=== PATIENT | female | born 1970 | race Caucasian/White ===

== ENCOUNTER 2020-12-24 15:40 | Emergency (ER) | payer OTHER ==
[2020-12-24 15:45] VITALS: BP 148/83; PULSE 100; TEMP 98.5; BMI 29.9
[2020-12-24] MEDS ORDERED: KETOROLAC TROMETHAMINE 30 MG/1 ML VIAL ONE (17:31)
[2020-12-24] MEDS ORDERED: KETOROLAC TROMETHAMINE 30 MG/1 ML VIAL IM ONE (17:31)
[2020-12-24 18:08] LABS: BASO % 0.5 % (0-2.0); EOS % 1.3 % (0-4.5); HEMATOCRIT 32.7 % (32.4-45.2); HEMOGLOBIN 10.4 GM/dL (10.7-15.3); LYMPH % 22.2 % (8-40); MCH 20.6 pg (25.7-33.7); MCHC 31.7 g/dl (32.0-36.0); MEAN CELL VOLUME 64.9 fl (80-96); MEAN PLT VOLUME 8.5 fl (7.5-11.1); MONO % 4.5 % (3.8-10.2); NEUT % 71.5 % (42.8-82.8); PLATELET COUNT 362 K/MM3 (134-434); RBC 5.04 M/mm3 (3.60-5.2); RDW 21.4 % (11.6-15.6); WHITE BLOOD COUNT 8.9 K/mm3 (4.0-10.0)
[2020-12-24 18:23] LABS: EPI CELLS >36 /uL (0-25.1); HYALINE CASTS 4 /uL (0-3.1); URINE APPEARANCE CLOUDY; URINE BACTERIA 120 /uL (0-1359); URINE BILIRUBIN NEGATIVE (NEGATIVE); URINE COLOR YELLOW; URINE GLUCOSE (UA) NEGATIVE (NEGATIVE); URINE KETONE TRACE (NEGATIVE); URINE LEUK ESTERASE TRACE (NEGATIVE); URINE NITRITE NEGATIVE (NEGATIVE); URINE PROTEIN NEGATIVE (NEGATIVE); URINE RBC 61 /uL (0-23.9); URINE UROBILINOGEN 0.2 mg/dL (0.2-1.0); URINE WBC 11 /uL (0-25.8)
[2020-12-24 18:25] LABS: CHLORIDE 102 mmol/L (98-107); SODIUM 135 mmol/L (136-145)
[2020-12-24 18:27] LABS: ALBUMIN 3.6 g/dl (3.4-5.0); ANION GAP 6 MMOL/L (8-16); CALCIUM 9.9 mg/dL (8.5-10.1); CO2 27 mmol/L (21-32); GLUCOSE,RANDOM 128 mg/dL (74-106)
[2020-12-24 18:30] LABS: SGPT/ALT 18 U/L (13-61)
[2020-12-24 18:31] LABS: CREATININE 0.6 mg/dL (0.55-1.3)
[2020-12-24 18:32] LABS: BILIRUBIN,TOTAL 0.3 mg/dL (0.2-1); TOT PROT 8.2 g/dl (6.4-8.2)
[2020-12-24 18:33] LABS: ALK PHOS 100 U/L (45-117)
[2020-12-24 18:39] LABS: ANISOCYTOSIS 3+; MACROCYTOSIS 0; PLATELET ESTIMATE NORMAL; SGOT/AST 13 U/L (15-37); TARGET CELLS 1+; TEAR DROP CELLS 1+
[2020-12-24] MEDS ORDERED: ACETAMINOPHEN 325 MG TABLET (FP) PO ONE (19:54)
[2020-12-24] MEDS ORDERED: ACETAMINOPHEN 325 MG TABLET (FP) ONE (20:07)
== END 2020-12-24 20:36 | disposition home or self-care (01) ==
LOC: JER 15:40
PROC: 3E0233Z Introduction of Anti-inflammatory into Muscle, Percutaneous Approach (ICD-10-PCS; principal; 2020-12-24)
DX: N93.9 Abnormal uterine and vaginal bleeding, unspecified (principal); D25.9 Leiomyoma of uterus, unspecified; N83.209 Unspecified ovarian cyst, unspecified side
CPT/HCPCS: 36415; 76830-TC; 80053; 81003; 84702; 85025; 86850; 86900; 86901; 87077; 87086; 99285-25

== ENCOUNTER 2021-03-20 13:37 | Emergency (ER) | payer OTHER ==
[2021-03-20 14:47] VITALS: BP 127/78; PULSE 80; TEMP 98.7; BMI 38.2
== END 2021-03-20 16:46 | disposition home or self-care (01) ==
LOC: JER 13:37
DX: Z48.00 Encounter for change or removal of nonsurgical wound dressing (principal)
CPT/HCPCS: 99282-25

== ENCOUNTER 2022-01-14 05:41 | Emergency (ER) | payer OTHER ==
[2022-01-14 06:01] VITALS: BP 133/86; PULSE 99; TEMP 98.8; BMI 42.1
[2022-01-14] MEDS ORDERED: ONDANSETRON 4 MG/2 ML VIAL IVPUSH ONE (06:29)
[2022-01-14] MEDS ORDERED: SODIUM CHLORIDE 1,000 ML IV STA (06:29)
[2022-01-14] MEDS ORDERED: ACETAMINOPHEN 500 MG TABLET (FP) PO ONE (06:29)
[2022-01-14] MEDS ORDERED: ONDANSETRON 4 MG/2 ML VIAL ONE (06:35)
[2022-01-14] MEDS ORDERED: ACETAMINOPHEN 325 MG TABLET (FP) ONE (06:35)
[2022-01-14 07:10] LABS: VENOUS BASE EXCESS 1.4 mmol/L (-2-2); VENOUS O2 SATURATION 82.1 % (70-80); VENOUS PH 7.386 (7.310-7.410)
[2022-01-14 07:21] LABS: BASO % 0.4 % (0-2.0); EOS % 1.9 % (0-4.5); HEMATOCRIT 40.9 % (32.4-45.2); HEMOGLOBIN 13.7 GM/dL (10.7-15.3); MCH 25.8 pg (25.7-33.7); MCHC 33.5 g/dl (32.0-36.0); MEAN PLT VOLUME 8.2 fl (7.5-11.1); MONO % 5.3 % (3.8-10.2); NEUT % 67.4 % (42.8-82.8); PLATELET COUNT 274 10^3/uL (134-434); RDW 14.5 % (11.6-15.6)
[2022-01-14 07:39] LABS: CHLORIDE 98 mmol/L (98-107); SODIUM 134 mmol/L (136-145)
[2022-01-14 07:41] LABS: CALCIUM 9.4 mg/dL (8.5-10.1)
[2022-01-14 07:42] LABS: ALBUMIN 3.7 g/dl (3.4-5.0); ANION GAP 8 MMOL/L (8-16); CO2 28 mmol/L (21-32)
[2022-01-14 07:44] LABS: SGPT/ALT 37 U/L (13-61)
[2022-01-14 07:45] LABS: CREATININE 0.7 mg/dL (0.55-1.3); SGOT/AST 25 U/L (15-37)
[2022-01-14 07:46] LABS: BILIRUBIN,TOTAL 0.4 mg/dL (0.2-1); TOT PROT 7.8 g/dl (6.4-8.2)
[2022-01-14 07:47] LABS: ALK PHOS 109 U/L (45-117)
[2022-01-14 07:55] LABS: GLUCOSE,RANDOM 433 mg/dL (74-106)
[2022-01-14 09:19] LABS: URINE APPEARANCE CLEAR; URINE BILIRUBIN NEGATIVE (NEGATIVE); URINE COLOR YELLOW; URINE GLUCOSE (UA) 3+ (NEGATIVE); URINE KETONE NEGATIVE (NEGATIVE)
[2022-01-14 09:20] LABS: PH,URINE 5.5 (5.0-8.0); URINE LEUK ESTERASE NEGATIVE (NEGATIVE); URINE NITRITE NEGATIVE (NEGATIVE); URINE PROTEIN NEGATIVE (NEGATIVE); URINE UROBILINOGEN 0.2 mg/dL (0.2-1.0)
[2022-01-14] MEDS ORDERED: FAMOTIDINE 20 MG/50 ML IVPB 20 MG/50 ML MG IVPB ONE ×2 (10:32→10:51)
[2022-01-14] MEDS ORDERED: morphine CARPU-JECT 2 MG/1 ML DISP.SYRIN IVPUSH ONE (11:27)
[2022-01-14 11:28] LABS: URINE RBC 1.1 /uL (0-23.9); URINE WBC 18.3 /uL (0-25.8)
[2022-01-14 11:29] LABS: EPI CELLS 16.2 /uL (0-25.1); HYALINE CASTS 0.76 /uL (0-3.1); URINE BACTERIA 422.2 /uL (0-1359)
== END 2022-01-14 11:20 | disposition home or self-care (01) ==
LOC: JER 05:41
PROC: 3E033GC Introduction of Other Therapeutic Substance into Peripheral Vein, Percutaneous Approach (ICD-10-PCS; principal; 2022-01-14)
PROC: 3E033NZ Introduction of Analgesics, Hypnotics, Sedatives into Peripheral Vein, Percutaneous Approach (ICD-10-PCS; 2022-01-14)
PROC: 3E033GC Introduction of Other Therapeutic Substance into Peripheral Vein, Percutaneous Approach (ICD-10-PCS; 2022-01-14)
PROC: 3E0337Z Introduction of Electrolytic and Water Balance Substance into Peripheral Vein, Percutaneous Approach (ICD-10-PCS; 2022-01-14)
DX: R73.9 Hyperglycemia, unspecified (principal)
CPT/HCPCS: 36415; 70450-TC; 71045-TC-FY; 74177-TC; 80053; 81003; 82010; 82803; 82962; 85025; 87086; 93005; 93010; 99285-25; Q9967

== ENCOUNTER 2022-06-09 13:16 | Emergency (ER) | payer OTHER ==
[2022-06-09 13:21] VITALS: BP 160/84; PULSE 86; RESP 18; TEMP 98.3; BMI 40.0
[2022-06-09] MEDS ORDERED: ACETAMINOPHEN 1000 MG/100 ML BAG IVPB ONE (14:12)
[2022-06-09] MEDS ORDERED: ONDANSETRON 4 MG/2 ML VIAL IVPUSH ONE (14:12)
[2022-06-09] MEDS ORDERED: SODIUM CHLORIDE 1,000 ML IV STA (14:12)
[2022-06-09] MEDS ORDERED: ONDANSETRON 4 MG/2 ML VIAL ONE (14:32)
[2022-06-09] MEDS ORDERED: ACETAMINOPHEN INJECTION 100 ML IVPB ONE (14:32)
[2022-06-09 15:21] LABS: BASO % 0.3 % (0-2.0); EOS % 0.8 % (0-4.5); HEMOGLOBIN 12.5 GM/dL (10.7-15.3); LYMPH % 18.2 % (8-40); MCH 25.6 pg (25.7-33.7); MCHC 32.8 g/dl (32.0-36.0); MEAN CELL VOLUME 78.1 fl (80-96); MEAN PLT VOLUME 7.8 fl (7.5-11.1); MONO % 3.8 % (3.8-10.2); NEUT % 76.9 % (42.8-82.8); PLATELET COUNT 304 10^3/uL (134-434); RBC 4.86 M/mm3 (3.60-5.2); RDW 14.7 % (11.6-15.6); WHITE BLOOD COUNT 8.4 K/mm3 (4.0-10.0)
[2022-06-09 15:24] LABS: EPI CELLS >36 /uL (0-25.1); HYALINE CASTS 1 /uL (0-3.1); PH,URINE 5.5 (5.0-8.0); URINE APPEARANCE CLEAR; URINE BACTERIA 311 /uL (0-1359); URINE BILIRUBIN NEGATIVE (NEGATIVE); URINE COLOR YELLOW; URINE GLUCOSE (UA) NEGATIVE (NEGATIVE); URINE KETONE NEGATIVE (NEGATIVE); URINE LEUK ESTERASE 1+ (NEGATIVE); URINE NITRITE NEGATIVE (NEGATIVE); URINE PROTEIN NEGATIVE (NEGATIVE); URINE RBC 2 /uL (0-23.9); URINE UROBILINOGEN 0.2 mg/dL (0.2-1.0); URINE WBC 5 /uL (0-25.8)
[2022-06-09 15:53] LABS: CALCIUM 9.7 mg/dL (8.5-10.1)
[2022-06-09 15:54] LABS: ALBUMIN 3.8 g/dl (3.4-5.0); BLOOD UREA NITROGEN 11.5 mg/dL (7-18)
[2022-06-09 15:57] LABS: CREATININE 0.5 mg/dL (0.55-1.3)
[2022-06-09 15:58] LABS: BILIRUBIN,TOTAL 0.3 mg/dL (0.2-1); INR 0.96 (0.83-1.09); TOT PROT 8.1 g/dl (6.4-8.2)
[2022-06-09 16:01] LABS: ACTIVATED PTT 33.6 SECONDS (25.2-36.5)
[2022-06-09] MEDS ORDERED: morphine CARPU-JECT 2 MG/1 ML DISP.SYRIN IVPUSH ONE (17:14)
== END 2022-06-09 19:02 | disposition home or self-care (01) ==
LOC: JER 13:16
PROC: 3E0333Z Introduction of Anti-inflammatory into Peripheral Vein, Percutaneous Approach (ICD-10-PCS; principal; 2022-06-09)
PROC: 3E033NZ Introduction of Analgesics, Hypnotics, Sedatives into Peripheral Vein, Percutaneous Approach (ICD-10-PCS; 2022-06-09)
PROC: 3E033GC Introduction of Other Therapeutic Substance into Peripheral Vein, Percutaneous Approach (ICD-10-PCS; 2022-06-09)
PROC: 3E0337Z Introduction of Electrolytic and Water Balance Substance into Peripheral Vein, Percutaneous Approach (ICD-10-PCS; 2022-06-09)
DX: K57.30 Diverticulosis of large intestine without perforation or abscess without bleeding (principal)
CPT/HCPCS: 36415; 74177-TC; 80053; 81003; 82272; 83690; 85025; 85610; 85730; 86850; 86900; 86901; 87077; 87086; 99285-25; Q9967

== ENCOUNTER 2023-06-01 16:36 | Emergency (ER) | payer OTHER ==
[2023-06-01 16:47] VITALS: PULSE 82; BMI 54.8
[2023-06-01] MEDS ORDERED: SODIUM CHLORIDE 0.9% 1000 ML INFUS.BAG IV ONE (17:50)
[2023-06-01] MEDS ORDERED: ACETAMINOPHEN 1000 MG/100 ML BAG IVPB ONE (17:50)
[2023-06-01] MEDS ORDERED: ACETAMINOPHEN INJECTION 100 ML IVPB ONE (18:15)
[2023-06-01 18:25] VITALS: BP 156/87; RESP 16; TEMP 98.7
[2023-06-01 18:46] LABS: BASO % 0.4 % (0-2.0); EOS % 1.3 % (0-4.5); HEMATOCRIT 38.1 % (32.4-45.2); HEMOGLOBIN 12.6 GM/dL (10.7-15.3); LYMPH % 20.4 % (8-40); MCH 25.8 pg (25.7-33.7); MCHC 33.1 g/dl (32.0-36.0); MEAN CELL VOLUME 78.1 fl (80-96); MONO % 4.7 % (3.8-10.2); NEUT % 73.2 % (42.8-82.8); PLATELET COUNT 303 10^3/uL (134-434); RBC 4.87 M/mm3 (3.60-5.2); WHITE BLOOD COUNT 7.2 K/mm3 (4.0-10.0)
[2023-06-01 18:47] LABS: PH,URINE 5.5 (5.0-8.0); URINE APPEARANCE CLEAR; URINE BILIRUBIN NEGATIVE (NEGATIVE); URINE COLOR YELLOW; URINE GLUCOSE (UA) NEGATIVE (NEGATIVE); URINE KETONE NEGATIVE (NEGATIVE); URINE LEUK ESTERASE NEGATIVE (NEGATIVE); URINE NITRITE NEGATIVE (NEGATIVE); URINE PROTEIN NEGATIVE (NEGATIVE); URINE UROBILINOGEN 0.2 mg/dL (0.2-1.0)
[2023-06-01 18:56] LABS: INR 1.06 (0.83-1.09); PROTHROMBIN TIME (PATIENT) 12.3 SEC (9.7-13.0)
[2023-06-01 18:59] LABS: ACTIVATED PTT 30.5 SECONDS (25.2-36.5)
[2023-06-01 19:11] LABS: POTASSIUM 4.4 mmol/L (3.5-5.1)
[2023-06-01 19:12] LABS: CALCIUM 9.5 mg/dL (8.5-10.1)
[2023-06-01 19:13] LABS: ALBUMIN 3.6 g/dl (3.4-5.0); BLOOD UREA NITROGEN 14.9 mg/dL (7-18)
[2023-06-01 19:16] LABS: CREATININE 0.8 mg/dL (0.55-1.3)
[2023-06-01 19:18] LABS: BILIRUBIN,TOTAL 0.3 mg/dL (0.2-1); TOT PROT 7.6 g/dl (6.4-8.2)
[2023-06-01] MEDS ORDERED: KETOROLAC TROMETHAMINE 15 MG/ML VIAL IVPUSH ONE (20:51)
[2023-06-01] MEDS ORDERED: KETOROLAC TROMETHAMINE 15 MG/ML VIAL ONE (21:00)
[2023-06-01] MEDS ORDERED: AMOX TR/POT CLAV 875MG/125MG TABLETS (FP) PO ONE (23:08)
[2023-06-01] MEDS ORDERED: AMOX TR/POT CLAV 875MG/125MG TABLETS (FP) ONE (23:16)
== END 2023-06-01 23:26 | disposition home or self-care (01) ==
LOC: JER 16:36
PROC: 3E033NZ Introduction of Analgesics, Hypnotics, Sedatives into Peripheral Vein, Percutaneous Approach (ICD-10-PCS; principal; 2023-06-01)
PROC: 3E0333Z Introduction of Anti-inflammatory into Peripheral Vein, Percutaneous Approach (ICD-10-PCS; 2023-06-01)
DX: M79.604 Pain in right leg (principal); M79.605 Pain in left leg; R22.41 Localized swelling, mass and lump, right lower limb; R10.32 Left lower quadrant pain; R10.2 Pelvic and perineal pain; K57.92 Diverticulitis of intestine, part unspecified, without perforation or abscess without bleeding; R07.89 Other chest pain; G89.29 Other chronic pain; E66.9 Obesity, unspecified; R30.0 Dysuria; R61 Generalized hyperhidrosis
CPT/HCPCS: 36415; 74177-TC; 80053; 81003; 85025; 85610; 85730; 87086; 93005; 93010; 93970-TC; 99285-25

== ENCOUNTER 2024-02-12 16:20 | Emergency (ER) | payer OTHER ==
[2024-02-12 16:33] VITALS: BP 168/85; PULSE 89; RESP 18; TEMP 98.5; BMI 39.3
[2024-02-12] MEDS ORDERED: ACETAMINOPHEN 500 MG TABLET (FP) ONE (17:30)
[2024-02-12] MEDS: ACETAMINOPHEN 500 MG TABLET (FP) PO ONE (17:38)
== END 2024-02-12 18:12 | disposition home or self-care (01) ==
LOC: JER 16:20
DX: M25.561 Pain in right knee (principal); M79.89 Other specified soft tissue disorders
CPT/HCPCS: 73564-TC-RT-FY; 82962; 99284-25

== ENCOUNTER 2024-07-17 20:51 | Inpatient (IN) | payer OTHER ==
[2024-07-17] MEDS ORDERED: morphine SULFATE 4 MG/ML VIAL ONE (21:58)
[2024-07-17] MEDS ORDERED: ACETAMINOPHEN INJECTION 100 ML ONE (21:59)
[2024-07-17] MEDS: morphine CARPU-JECT 4 MG/1 ML DISP.SYRIN IVPUSH ONE (22:09)
[2024-07-17] MEDS: ACETAMINOPHEN 1000 MG/100 ML BAG IVPB ONE (22:10)
[2024-07-17] MEDS: LACTATED RINGERS SOLUTION 1000 ML INFUS.BAG IV ONE (22:10)
[2024-07-17 23:02] LABS: BASO % 0.5 % (0-2.0); EOS % 0.1 % (0-4.5); HEMATOCRIT 33.1 % (32.4-45.2); HEMOGLOBIN 10.3 GM/dL (10.7-15.3); LYMPH % 6.9 % (8-40); MCH 24.6 pg (25.7-33.7); MCHC 31.1 g/dl (32.0-36.0); MEAN PLT VOLUME 7.6 fl (7.5-11.1); MONO % 5.4 % (3.8-10.2); NEUT % 87.1 % (42.8-82.8); PLATELET COUNT 301 10^3/uL (134-434); RBC 4.19 M/mm3 (3.60-5.2); RDW 13.9 % (11.6-15.6); VENOUS BASE EXCESS -3.1 mmol/L (-2-2); VENOUS O2 SATURATION 21.3 % (70-80); VENOUS PCO2 48.8 mmHg (38-52); VENOUS PH 7.3 (7.310-7.410); WHITE BLOOD COUNT 12.5 K/mm3 (4.0-10.0)
[2024-07-17 23:20] LABS: POTASSIUM 3.8 mmol/L (3.5-5.1)
[2024-07-17 23:22] LABS: CALCIUM 9.3 mg/dL (8.5-10.1)
[2024-07-17 23:23] LABS: ALBUMIN 3.6 g/dl (3.4-5.0); BLOOD UREA NITROGEN 20.2 mg/dL (7-18)
[2024-07-17 23:26] LABS: CREATININE 0.8 mg/dL (0.55-1.3)
[2024-07-17 23:27] LABS: BILIRUBIN,TOTAL 0.5 mg/dL (0.2-1)
[2024-07-18] MEDS: cefOXitin SODIUM 2 GM VIAL (RESTRICTED TO ID) IVPB ONE
[2024-07-18] MEDS: BUPIVACAINE HCL/PF 0.5% (5 MG/ML) 30 ML VIAL IJ ONE
[2024-07-18 00:16] LABS: HIV INTERPRETATION NEGATIVE (NEGATIVE)
[2024-07-18] MEDS ORDERED: morphine SULFATE 4 MG/ML VIAL ONE ×3 (00:40→10:57)
[2024-07-18] MEDS: morphine CARPU-JECT 4 MG/1 ML DISP.SYRIN IVPUSH ONE ×2 (00:43→11:00)
[2024-07-18] MEDS ORDERED: PIPERACILLIN/TAZOB 4.5 GM 4.5 GM/100 ML BAG IVPB ONE (02:00)
[2024-07-18] MEDS: PIPERACILLIN/TAZOB 4.5 GM 4.5 GM in DEXTROSE 5%-WATER 100 ML IVPB ONE (02:12)
[2024-07-18] MEDS: DEXTROSE 5%-0.45% SALINE 1,000 ML IV SCH ×2 (02:40→23:37)
[2024-07-18 04:01] LABS: INR 1.05 (0.83-1.09); PROTHROMBIN TIME (PATIENT) 12.1 SEC (9.7-13.0)
[2024-07-18] MEDS: ACETAMINOPHEN 1000 MG/100 ML BAG IVPB PRN ×2 (04:40→12:20)
[2024-07-18] MEDS: morphine SULFATE 4 MG/ML VIAL IVPUSH PRN ×2 (06:44→21:12)
[2024-07-18 08:56] LABS: EPI CELLS 36 /uL (0-25.1); HYALINE CASTS 0 /uL (0-3.1); PH,URINE 5.5 (5.0-8.0); URINE APPEARANCE CLEAR; URINE BACTERIA 1089 /uL (0-1359); URINE BILIRUBIN NEGATIVE (NEGATIVE); URINE COLOR YELLOW; URINE GLUCOSE (UA) NEGATIVE (NEGATIVE); URINE KETONE NEGATIVE (NEGATIVE); URINE LEUK ESTERASE NEGATIVE (NEGATIVE); URINE NITRITE NEGATIVE (NEGATIVE); URINE PROTEIN TRACE (NEGATIVE); URINE RBC 3 /uL (0-23.9); URINE UROBILINOGEN 0.2 mg/dL (0.2-1.0); URINE WBC 44 /uL (0-25.8)
[2024-07-18 08:58] LABS: HEMATOCRIT 33.8 % (32.4-45.2); HEMOGLOBIN 10.6 GM/dL (10.7-15.3); MCH 24.8 pg (25.7-33.7); MCHC 31.2 g/dl (32.0-36.0); MEAN CELL VOLUME 79.3 fl (80-96); PLATELET COUNT 301 10^3/uL (134-434); RBC 4.26 M/mm3 (3.60-5.2); RDW 14.3 % (11.6-15.6); WHITE BLOOD COUNT 13.9 K/mm3 (4.0-10.0)
[2024-07-18 09:11] LABS: POTASSIUM 3.5 mmol/L (3.5-5.1)
[2024-07-18 09:12] LABS: CALCIUM 9.3 mg/dL (8.5-10.1)
[2024-07-18 09:13] LABS: BLOOD UREA NITROGEN 16.4 mg/dL (7-18)
[2024-07-18 09:16] LABS: CREATININE 0.5 mg/dL (0.55-1.3)
[2024-07-18 09:59] LABS: ANISOCYTOSIS 0; MACROCYTOSIS 0
[2024-07-18] MEDS ORDERED: ENOXAPARIN NA (PORCINE) 40 MG/0.4 ML DISP.SYRIN SQ ONE (10:22)
[2024-07-18] MEDS ORDERED: PIPERACILLIN/TAZOB 3.375 GM 3.375 GM/50 ML BAG IVPB ONE (10:23)
[2024-07-18] MEDS: ENOXAPARIN NA (PORCINE) 40 MG/0.4 ML DISP.SYRIN SQ SCH (10:32)
[2024-07-18] MEDS: PIPERACILLIN/TAZOB 3.375 GM 3.375 GM in DEXTROSE 5%-WATER - 50 ML IVPB SCH (10:32)
[2024-07-18] MEDS ORDERED: PANTOPRAZOLE SODIUM 40 MG/100 ML BAG IVPB ONE (10:58)
[2024-07-18] MEDS: PANTOPRAZOLE SODIUM 40 MG in SODIUM CHLORIDE 100 ML IVPB SCH (11:00)
[2024-07-18] MEDS: PANTOPRAZOLE SODIUM 40 MG VIAL IVPB SCH (12:03)
[2024-07-18] MEDS: morphine SULFATE 4 MG/ML VIAL IVPUSH ONE (12:03)
[2024-07-18] MEDS ORDERED: ACETAMINOPHEN INJECTION 100 ML ONE (12:20)
[2024-07-18] MEDS ORDERED: BUPIVACAINE HCL/PF 0.25% (2.5MG/ML) 10 ML VIAL ONE (12:53)
[2024-07-18] MEDS ORDERED: MIDAZOLAM HCL 2 MG/2 ML SINGLE DOSE VIAL ONE ×2 (13:14→17:49)
[2024-07-18] MEDS ORDERED: KETOROLAC TROMETHAMINE 30 MG/1 ML VIAL ONE (13:16)
[2024-07-18] MEDS ORDERED: ceFAZolin SODIUM 1 GM VIAL ONE (13:16)
[2024-07-18] MEDS ORDERED: PROPOFOL 20 ML ONE (13:16)
[2024-07-18] MEDS ORDERED: DEXAMETHASONE SOD PHOSPHATE 4 MG/1 ML VIAL ONE (13:16)
[2024-07-18] MEDS ORDERED: ONDANSETRON 4 MG/2 ML VIAL ONE (13:16)
[2024-07-18] MEDS ORDERED: LIDOCAINE HCL 1%, 10 MG/ML (20ML VIAL) ONE (14:29)
[2024-07-18] MEDS ORDERED: BUPIVACAINE HCL/PF 0.5% (5MG/ML) 10 ML VIAL ONE (14:29)
[2024-07-18] MEDS: ceFAZolin SODIUM 1 GM VIAL IVPB ONE ×2 (15:05)
[2024-07-18] MEDS: BUPIVACAINE HCL/PF 0.25% (2.5MG/ML) 10 ML VIAL IJ ONE ×3 (15:16)
[2024-07-18] MEDS ORDERED: ROCURONIUM BROMIDE 50 MG/5 ML SYRINGE ONE (16:09)
[2024-07-18] MEDS ORDERED: SUGAMMADEX SODIUM 200 MG/2 ML VIAL ONE ×2 (17:29→17:38)
[2024-07-18] MEDS ORDERED: SUCCINYLCHOLINE CHLORIDE 200 MG/10 ML SYRINGE ONE (17:45)
[2024-07-18] MEDS: LACTATED RINGERS SOLUTION 1,000 ML IV SCH (17:55)
[2024-07-18] MEDS ORDERED: ONDANSETRON 4 MG/2 ML VIAL IVPUSH PRN ×2 (17:55→18:10)
[2024-07-18] MEDS ORDERED: PIPERACILLIN/TAZOB 3.375 GM 3.375 GM in DEXTROSE 5%-WATER - 50 ML IVPB SCH (18:00)
[2024-07-18] MEDS ORDERED: LACTATED RINGERS SOLUTION 1,000 ML IV SCH (18:00)
[2024-07-19 00:02] VITALS: BMI 40.5
[2024-07-19] MEDS: PIPERACILLIN/TAZOB 3.375 GM 3.375 GM in DEXTROSE 5%-WATER - 50 ML IVPB SCH (01:15)
[2024-07-19] MEDS: ACETAMINOPHEN 1000 MG/100 ML BAG IVPB PRN (02:13)
[2024-07-19] MEDS: PANTOPRAZOLE SODIUM 40 MG VIAL IVPB SCH (09:19)
[2024-07-19] MEDS: ENOXAPARIN NA (PORCINE) 40 MG/0.4 ML DISP.SYRIN SQ SCH (09:19)
[2024-07-19] MEDS ORDERED: PIPERACILLIN/TAZOB 3.375 GM 3.375 GM in DEXTROSE 5%-WATER - 50 ML IVPB SCH (10:00)
[2024-07-19 10:25] LABS: HEMATOCRIT 30.5 % (32.4-45.2); HEMOGLOBIN 9.8 GM/dL (10.7-15.3); MCHC 32.3 g/dl (32.0-36.0); MEAN CELL VOLUME 77.6 fl (80-96); MEAN PLT VOLUME 7.9 fl (7.5-11.1); PLATELET COUNT 303 10^3/uL (134-434); RBC 3.93 M/mm3 (3.60-5.2); RDW 14.4 % (11.6-15.6); WHITE BLOOD COUNT 12.8 K/mm3 (4.0-10.0)
[2024-07-19 11:28] LABS: POTASSIUM 3.3 mmol/L (3.5-5.1)
[2024-07-19 11:45] LABS: BLOOD UREA NITROGEN 14.5 mg/dL (7-18); CALCIUM 8.9 mg/dL (8.5-10.1)
[2024-07-19 11:47] LABS: BILIRUBIN,TOTAL 0.6 mg/dL (0.2-1)
[2024-07-19 11:48] LABS: CREATININE 0.4 mg/dL (0.55-1.3)
[2024-07-19 11:50] LABS: TOT PROT 6.4 g/dl (6.4-8.2)
[2024-07-19 12:11] LABS: ALBUMIN 2.7 g/dl (3.4-5.0)
[2024-07-19] MEDS: INSULIN ASPART SLIDING SCALE (NOVOLOG) 1 VIAL SQ SCH (12:52)
[2024-07-19] MEDS: LISINOPRIL 10 MG TABLET PO SCH (12:53)
[2024-07-19] MEDS ORDERED: GABAPENTIN 300 MG CAPSULE PO SCH (14:00)
[2024-07-20] MEDS: SIMETHICONE 80 MG TAB.CHEW (FP) PO PRN (00:35)
[2024-07-20 09:53] LABS: BASO % 0.4 % (0-2.0); EOS % 0.3 % (0-4.5); HEMATOCRIT 33.5 % (32.4-45.2); HEMOGLOBIN 10.5 GM/dL (10.7-15.3); LYMPH % 8.2 % (8-40); MCH 24.5 pg (25.7-33.7); MCHC 31.3 g/dl (32.0-36.0); MEAN CELL VOLUME 78.4 fl (80-96); MEAN PLT VOLUME 7.4 fl (7.5-11.1); NEUT % 89.1 % (42.8-82.8); PLATELET COUNT 375 10^3/uL (134-434); RBC 4.27 M/mm3 (3.60-5.2); RDW 14.5 % (11.6-15.6); WHITE BLOOD COUNT 12.1 K/mm3 (4.0-10.0)
[2024-07-20] MEDS ORDERED: ACETAMINOPHEN 1000 MG/100 ML BAG IVPB PRN (11:04)
[2024-07-20] MEDS: GABAPENTIN 300 MG CAPSULE PO SCH (12:08)
[2024-07-20 12:24] LABS: POTASSIUM 3.2 mmol/L (3.5-5.1)
[2024-07-20 12:28] LABS: CALCIUM 9.2 mg/dL (8.5-10.1)
[2024-07-20 12:29] LABS: ALBUMIN 2.6 g/dl (3.4-5.0); BLOOD UREA NITROGEN 11.8 mg/dL (7-18); MAGNESIUM 2.2 mg/dL (1.8-2.4)
[2024-07-20 12:32] LABS: CREATININE 0.4 mg/dL (0.55-1.3)
[2024-07-20 12:34] LABS: BILIRUBIN,TOTAL 0.7 mg/dL (0.2-1); TOT PROT 6.8 g/dl (6.4-8.2)
[2024-07-20] MEDS ORDERED: POTASSIUM CHLORIDE ORAL LIQUID 20 MEQ/15 ML PO ONE (12:47)
[2024-07-20] MEDS: ACETAMINOPHEN 1000 MG/100 ML BAG IVPB SCH (13:10)
[2024-07-20] MEDS: KETOROLAC TROMETHAMINE 15 MG/ML VIAL IVPUSH SCH (17:20)
[2024-07-20] MEDS: POTASSIUM CHLORIDE ORAL LIQUID 20 MEQ/15 ML PO ONE (17:56)
[2024-07-20] MEDS: POTASSIUM CHLORIDE ORAL LIQUID 20 MEQ/15 ML PO SCH (22:33)
[2024-07-21 09:21] LABS: BASO % 0.4 % (0-2.0); EOS % 2.4 % (0-4.5); HEMATOCRIT 30.4 % (32.4-45.2); HEMOGLOBIN 9.9 GM/dL (10.7-15.3); LYMPH % 12.3 % (8-40); MCH 25.2 pg (25.7-33.7); MCHC 32.4 g/dl (32.0-36.0); MEAN CELL VOLUME 77.8 fl (80-96); MEAN PLT VOLUME 7.2 fl (7.5-11.1); MONO % 4.9 % (3.8-10.2); PLATELET COUNT 373 10^3/uL (134-434); RBC 3.91 M/mm3 (3.60-5.2); RDW 14.9 % (11.6-15.6); WHITE BLOOD COUNT 8.4 K/mm3 (4.0-10.0)
[2024-07-21 09:37] LABS: POTASSIUM 3.5 mmol/L (3.5-5.1)
[2024-07-21 09:43] LABS: CALCIUM 8.9 mg/dL (8.5-10.1)
[2024-07-21 09:44] LABS: ALBUMIN 2.6 g/dl (3.4-5.0); BLOOD UREA NITROGEN 14.2 mg/dL (7-18); MAGNESIUM 2.2 mg/dL (1.8-2.4)
[2024-07-21 09:47] LABS: CREATININE 0.5 mg/dL (0.55-1.3)
[2024-07-21 09:48] LABS: BILIRUBIN,TOTAL 0.5 mg/dL (0.2-1)
[2024-07-21 09:49] LABS: TOT PROT 6.9 g/dl (6.4-8.2)
[2024-07-21] MEDS: amLODIPine BESYLATE 5 MG TABLET (FP) PO SCH (12:19)
[2024-07-21] MEDS: oxyCODONE HCL 5 MG TABLET PO PRN (12:42)
[2024-07-21] MEDS: ACETAMINOPHEN 325 MG TABLET (FP) PO PRN (18:12)
[2024-07-22 09:23] LABS: HEMATOCRIT 30.1 % (32.4-45.2); HEMOGLOBIN 9.6 GM/dL (10.7-15.3); MCH 25.2 pg (25.7-33.7); MCHC 31.8 g/dl (32.0-36.0); MEAN PLT VOLUME 7.4 fl (7.5-11.1); PLATELET COUNT 324 10^3/uL (134-434); RBC 3.81 M/mm3 (3.60-5.2); RDW 15.1 % (11.6-15.6); WHITE BLOOD COUNT 9.9 K/mm3 (4.0-10.0)
[2024-07-22 09:57] LABS: POTASSIUM 4.1 mmol/L (3.5-5.1)
[2024-07-22 10:02] LABS: ALBUMIN 2.5 g/dl (3.4-5.0); BLOOD UREA NITROGEN 11.7 mg/dL (7-18); CALCIUM 8.9 mg/dL (8.5-10.1); CREATININE 0.3 mg/dL (0.55-1.3)
[2024-07-22 10:05] LABS: BILIRUBIN,TOTAL 0.6 mg/dL (0.2-1); TOT PROT 6.7 g/dl (6.4-8.2)
[2024-07-22 10:32] LABS: ANISOCYTOSIS 0; HELMET CELLS 0; HOWELL-JOLLY BODIES 0; MACROCYTOSIS 0; OVALOCYTE 0; ROULEAU 0; SICKELED CELLS 0; TARGET CELLS 0; TEAR DROP CELLS 0; TOXIC GRANULATION 0
[2024-07-22] MEDS: oxyCODONE HCL 5 MG TABLET PO PRN (10:34)
[2024-07-22] MEDS: POLYETHYLENE GLYCOL (HEALTHYLAX) 3350 17 GM PACKET PO SCH (10:34)
[2024-07-22] MEDS: IBUPROFEN 600 MG TABLET (FP) PO SCH (11:22)
[2024-07-22] MEDS: DOCUSATE SODIUM 100 MG CAPSULE (FP) PO SCH (14:41)
[2024-07-22] MEDS: ACETAMINOPHEN 500 MG TABLET (FP) PO SCH (15:30)
[2024-07-22] MEDS: AMOX TR/POT CLAV 875MG/125MG TABLETS (FP) PO SCH (17:40)
[2024-07-24] MEDS: hydrOXYzine PAMOATE 25 MG CAPSULE (FP) PO ONE (16:51)
[2024-07-24] MEDS: ATORVASTATIN CA 20 MG TABLET (FP) PO SCH (16:52)
[2024-07-24] MEDS: BISACODYL 10 MG SUPP.RECT PR ONE (16:56)
[2024-07-24] MEDS: LISINOPRIL 10 MG TABLET PO SCH (16:56)
[2024-07-24] MEDS ORDERED: hydrOXYzine PAMOATE 25 MG CAPSULE (FP) PO PRN (19:55)
[2024-07-24] MEDS: SENNOSIDES 8.8 MG/5 ML SYRUP PO SCH (21:05)
[2024-07-24] MEDS ORDERED: ENOXAPARIN NA (PORCINE) 40 MG/0.4 ML DISP.SYRIN SQ SCH (22:00)
[2024-07-24] MEDS ORDERED: PATIENT'S OWN MEDICATION (NON-FORMULARY) (Gabapentin [Gabapentin] 600 MG Tablet) PO SCH (22:00)
[2024-07-25] MEDS: ENOXAPARIN NA (PORCINE) 40 MG/0.4 ML DISP.SYRIN SQ SCH (06:09)
[2024-07-25 09:01] LABS: HEMATOCRIT 31.1 % (32.4-45.2); HEMOGLOBIN 10.1 GM/dL (10.7-15.3); MCHC 32.3 g/dl (32.0-36.0); MEAN CELL VOLUME 77.3 fl (80-96); PLATELET COUNT 498 10^3/uL (134-434); RBC 4.02 M/mm3 (3.60-5.2); RDW 15.3 % (11.6-15.6)
[2024-07-25 09:13] LABS: POTASSIUM 4.7 mmol/L (3.5-5.1)
[2024-07-25 09:15] LABS: CALCIUM 9.7 mg/dL (8.5-10.1)
[2024-07-25 09:16] LABS: BLOOD UREA NITROGEN 15.1 mg/dL (7-18)
[2024-07-25 09:19] LABS: CREATININE 0.4 mg/dL (0.55-1.3)
[2024-07-25 09:21] LABS: BILIRUBIN,TOTAL 0.4 mg/dL (0.2-1); TOT PROT 7.5 g/dl (6.4-8.2)
[2024-07-25 10:35] LABS: ANISOCYTOSIS 2+; MACROCYTOSIS 0
[2024-07-25] MEDS: IBUPROFEN 400 MG TABLET (FP) PO PRN (13:44)
[2024-07-25] MEDS: FLUCONAZOLE 150 MG TABLET PO ONE (13:46)
[2024-07-25] MEDS: METHYLNALTREXONE BROMIDE 8 MG/0.4 ML SYRINGE SQ ONE (13:50)
[2024-07-26 09:09] LABS: HEMATOCRIT 30.4 % (32.4-45.2); MCH 25.5 pg (25.7-33.7); MEAN CELL VOLUME 77.3 fl (80-96); MEAN PLT VOLUME 7.1 fl (7.5-11.1); PLATELET COUNT 508 10^3/uL (134-434); RBC 3.94 M/mm3 (3.60-5.2); RDW 14.9 % (11.6-15.6); WHITE BLOOD COUNT 9.7 K/mm3 (4.0-10.0)
[2024-07-26] MEDS ORDERED: BISACODYL 5 MG TABLET.DR (FP) PO ONE (09:32)
[2024-07-26 10:19] LABS: ANISOCYTOSIS 3+; MACROCYTOSIS 0
[2024-07-26] MEDS: BISACODYL 5 MG TABLET.DR (FP) PO ONE (12:19)
[2024-07-27] MEDS: CLOTRIMAZOLE 1% CREAM TP SCH (02:15)
[2024-07-27 14:37] VITALS: BP 129/79; PULSE 84; RESP 20; TEMP 98.7
== END 2024-07-27 14:40 | disposition home or self-care (01) | DRG 221 ==
LOC: JER 20:51 → JERBED 07-18 01:25 → J6S 07-18 20:25
PROVIDERS: ADMIT Student in an Organized Health Care Education/Training Program; ATTEND Internal Medicine
PROC: 0DTJ4ZZ Resection of Appendix, Percutaneous Endoscopic Approach (ICD-10-PCS; 2024-07-18)
PROC: 3E1M48Z Irrigation of Peritoneal Cavity using Irrigating Substance, Percutaneous Endoscopic Approach (ICD-10-PCS; 2024-07-18)
PROC: 0DBH4ZZ Excision of Cecum, Percutaneous Endoscopic Approach (ICD-10-PCS; principal; 2024-07-18 14:15)
DX: K35.32 Acute appendicitis with perforation, localized peritonitis, and gangrene, without abscess (principal); Z68.41 Body mass index [BMI] 40.0-44.9, adult; E66.01 Morbid (severe) obesity due to excess calories; E11.42 Type 2 diabetes mellitus with diabetic polyneuropathy; D64.9 Anemia, unspecified; E78.5 Hyperlipidemia, unspecified; I10 Essential (primary) hypertension
CPT/HCPCS: 36415; 71045-TC-FY; 74018-TC-FY; 74177-TC; 80048; 80053; 81003; 82010; 82803; 82962; 83036; 83605; 83735; 84484; 85025; 85027; 85610; 86803; 86850; 86900; 86901; 87040; 87389; 87635; 88304-TC; 93005; 93010; 94010; 94760; 97116-GP; 97162-GP; 99285-25; G0397; J0131; Q9967

== ENCOUNTER 2024-08-03 12:05 | Inpatient (IN) | payer OTHER ==
[2024-08-03 12:39] VITALS: BMI 32.5
[2024-08-03] MEDS ORDERED: ACETAMINOPHEN 325 MG TABLET (FP) ONE (13:29)
[2024-08-03] MEDS: ACETAMINOPHEN 325 MG TABLET (FP) PO ONE (13:35)
[2024-08-03 14:36] LABS: BASO % 0.3 % (0-2.0); EOS % 1.1 % (0-4.5); HEMATOCRIT 25.9 % (32.4-45.2); HEMOGLOBIN 8.2 GM/dL (10.7-15.3); LYMPH % 9.5 % (8-40); MCH 24.7 pg (25.7-33.7); MCHC 31.7 g/dl (32.0-36.0); MEAN CELL VOLUME 77.9 fl (80-96); MEAN PLT VOLUME 7.4 fl (7.5-11.1); MONO % 5.9 % (3.8-10.2); NEUT % 83.2 % (42.8-82.8); PLATELET COUNT 510 10^3/uL (134-434); RBC 3.33 M/mm3 (3.60-5.2); RDW 14.9 % (11.6-15.6); WHITE BLOOD COUNT 10.9 K/mm3 (4.0-10.0)
[2024-08-03 15:04] LABS: POTASSIUM 3.8 mmol/L (3.5-5.1)
[2024-08-03 15:06] LABS: CALCIUM 9.1 mg/dL (8.5-10.1)
[2024-08-03 15:07] LABS: ALBUMIN 2.6 g/dl (3.4-5.0); BLOOD UREA NITROGEN 14.1 mg/dL (7-18)
[2024-08-03 15:10] LABS: CREATININE 0.5 mg/dL (0.55-1.3)
[2024-08-03 15:12] LABS: BILIRUBIN,TOTAL 0.3 mg/dL (0.2-1); TOT PROT 6.8 g/dl (6.4-8.2)
[2024-08-03] MEDS: PIPERACILLIN/TAZOB 4.5 GM 4.5 GM in DEXTROSE 5%-WATER 100 ML IVPB ONE (18:49)
[2024-08-03] MEDS ORDERED: PIPERACILLIN/TAZOB 4.5 GM 4.5 GM/100 ML BAG IVPB ONE (18:50)
[2024-08-03] MEDS ORDERED: MORPHINE SULFATE 2 MG/ML SYRINGE ONE (19:14)
[2024-08-03 19:20] LABS: URINE APPEARANCE CLEAR; URINE COLOR YELLOW
[2024-08-03 19:21] LABS: URINE BILIRUBIN NEGATIVE (NEGATIVE); URINE GLUCOSE (UA) NEGATIVE (NEGATIVE); URINE KETONE NEGATIVE (NEGATIVE); URINE LEUK ESTERASE NEGATIVE (NEGATIVE); URINE NITRITE NEGATIVE (NEGATIVE); URINE PROTEIN NEGATIVE (NEGATIVE); URINE UROBILINOGEN 0.2 mg/dL (0.2-1.0)
[2024-08-03] MEDS ORDERED: PIPERACILLIN/TAZOB 3.375 GM 3.375 GM in DEXTROSE 5%-WATER - 50 ML IVPB SCH (21:00)
[2024-08-03] MEDS: INSULIN ASPART SLIDING SCALE (NOVOLOG) 1 VIAL SQ SCH (21:40)
[2024-08-03] MEDS: GABAPENTIN 300 MG CAPSULE PO SCH (21:41)
[2024-08-03] MEDS: PIPERACILLIN/TAZOB 3.375 GM 3.375 GM in DEXTROSE 5%-WATER - 50 ML IVPB SCH (23:24)
[2024-08-04] MEDS: FLU VACCINE (FLULAVAL) PF 45 MCG/0.5 ML SYRINGE 2024-2025 IM ONE (00:52)
[2024-08-04] MEDS: amLODIPine BESYLATE 5 MG TABLET (FP) PO SCH (09:06)
[2024-08-04] MEDS: SENNOSIDES 8.6MG TABLET (FP) PO SCH (09:06)
[2024-08-04] MEDS: ACETAMINOPHEN 325 MG TABLET (FP) PO SCH (09:06)
[2024-08-04] MEDS: LISINOPRIL 10 MG TABLET PO SCH (09:06)
[2024-08-04] MEDS: NAPROXEN 250 MG TABLET PO SCH (09:35)
[2024-08-04] MEDS ORDERED: ENOXAPARIN NA (PORCINE) 40 MG/0.4 ML DISP.SYRIN SQ SCH (10:00)
[2024-08-04 10:02] LABS: BASO % 0.6 % (0-2.0); EOS % 1.2 % (0-4.5); HEMOGLOBIN 7.9 GM/dL (10.7-15.3); LYMPH % 8.6 % (8-40); MCH 24.2 pg (25.7-33.7); MCHC 31.8 g/dl (32.0-36.0); MEAN CELL VOLUME 76.1 fl (80-96); MEAN PLT VOLUME 7.5 fl (7.5-11.1); MONO % 6.2 % (3.8-10.2); NEUT % 83.4 % (42.8-82.8); PLATELET COUNT 499 10^3/uL (134-434); RBC 3.28 M/mm3 (3.60-5.2); RDW 15.2 % (11.6-15.6); WHITE BLOOD COUNT 11.9 K/mm3 (4.0-10.0)
[2024-08-04 10:14] LABS: CALCIUM 8.8 mg/dL (8.5-10.1)
[2024-08-04 10:15] LABS: ALBUMIN 2.4 g/dl (3.4-5.0); MAGNESIUM 1.9 mg/dL (1.8-2.4); POTASSIUM 3.6 mmol/L (3.5-5.1)
[2024-08-04 10:18] LABS: CREATININE 0.5 mg/dL (0.55-1.3); PHOSPHOROUS 3.4 mg/dL (2.5-4.9)
[2024-08-04 10:19] LABS: BILIRUBIN,TOTAL 0.3 mg/dL (0.2-1)
[2024-08-04] MEDS: oxyCODONE HCL 5 MG TABLET PO PRN (11:35)
[2024-08-04] MEDS: ATORVASTATIN CA 20 MG TABLET (FP) PO SCH (21:20)
[2024-08-05] MEDS ORDERED: ONDANSETRON *ODT* 4 MG TABLET SL PRN (10:10)
[2024-08-05 10:57] LABS: BASO % 0.5 % (0-2.0); EOS % 0.9 % (0-4.5); HEMATOCRIT 23.6 % (32.4-45.2); HEMOGLOBIN 7.6 GM/dL (10.7-15.3); LYMPH % 10.5 % (8-40); MCH 24.4 pg (25.7-33.7); MCHC 32.4 g/dl (32.0-36.0); MEAN CELL VOLUME 75.5 fl (80-96); MEAN PLT VOLUME 7.2 fl (7.5-11.1); MONO % 7.1 % (3.8-10.2); PLATELET COUNT 469 10^3/uL (134-434); RBC 3.12 M/mm3 (3.60-5.2); RDW 14.8 % (11.6-15.6); WHITE BLOOD COUNT 10.8 K/mm3 (4.0-10.0)
[2024-08-05 11:00] LABS: INR 1.27 (0.83-1.09); PROTHROMBIN TIME (PATIENT) 14.3 SEC (9.7-13.0)
[2024-08-05 11:23] LABS: POTASSIUM 3.3 mmol/L (3.5-5.1)
[2024-08-05 11:30] LABS: CALCIUM 9.1 mg/dL (8.5-10.1)
[2024-08-05 11:31] LABS: ALBUMIN 2.4 g/dl (3.4-5.0); BLOOD UREA NITROGEN 13.4 mg/dL (7-18)
[2024-08-05 11:34] LABS: CREATININE 0.3 mg/dL (0.55-1.3)
[2024-08-05 11:35] LABS: BILIRUBIN,TOTAL 0.3 mg/dL (0.2-1); TOT PROT 6.5 g/dl (6.4-8.2)
[2024-08-05] MEDS ORDERED: BISACODYL 5 MG TABLET.DR (FP) PO PRN (12:51)
[2024-08-05] MEDS: POLYETHYLENE GLYCOL (HEALTHYLAX) 3350 17 GM PACKET PO SCH (13:42)
[2024-08-05] MEDS: POTASSIUM CHLORIDE TABS 10 MEQ TABLET.ER (FP) PO ONE (14:55)
[2024-08-05] MEDS: PIPERACILLIN/TAZOB 4.5 GM 4.5 GM in DEXTROSE 5%-WATER 100 ML IVPB SCH (15:50)
[2024-08-06 11:22] LABS: HEMATOCRIT 25.3 % (32.4-45.2); HEMOGLOBIN 8.1 GM/dL (10.7-15.3); MCH 24.3 pg (25.7-33.7); MCHC 32.1 g/dl (32.0-36.0); MEAN CELL VOLUME 75.5 fl (80-96); MEAN PLT VOLUME 7.4 fl (7.5-11.1); PLATELET COUNT 506 10^3/uL (134-434); RBC 3.35 M/mm3 (3.60-5.2); RDW 15.1 % (11.6-15.6); WHITE BLOOD COUNT 12.8 K/mm3 (4.0-10.0)
[2024-08-06 11:55] LABS: POTASSIUM 3.7 mmol/L (3.5-5.1)
[2024-08-06 11:59] LABS: CALCIUM 8.9 mg/dL (8.5-10.1)
[2024-08-06 12:00] LABS: ALBUMIN 2.4 g/dl (3.4-5.0); BLOOD UREA NITROGEN 11.4 mg/dL (7-18)
[2024-08-06 12:02] LABS: CREATININE 0.4 mg/dL (0.55-1.3)
[2024-08-06 12:04] LABS: BILIRUBIN,TOTAL 0.3 mg/dL (0.2-1); TOT PROT 7.2 g/dl (6.4-8.2)
[2024-08-06] MEDS ORDERED: ONDANSETRON 4 MG/2 ML VIAL IVPUSH PRN ×2 (14:27→17:14)
[2024-08-06] MEDS ORDERED: ACETAMINOPHEN INJECTION 100 ML ONE (15:20)
[2024-08-06] MEDS ORDERED: PROPOFOL 20 ML ONE ×2 (15:34→15:54)
[2024-08-06] MEDS ORDERED: MIDAZOLAM HCL 2 MG/2 ML SINGLE DOSE VIAL ONE (15:34)
[2024-08-06] MEDS ORDERED: LIDOCAINE HCL/PF 2% SDV 5ML VIAL ONE (15:35)
[2024-08-06] MEDS ORDERED: DEXAMETHASONE SOD PHOSPHATE 4 MG/1 ML VIAL ONE (15:36)
[2024-08-06] MEDS ORDERED: ONDANSETRON 4 MG/2 ML VIAL ONE (15:36)
[2024-08-06] MEDS ORDERED: ONDANSETRON *ODT* 4 MG TABLET SL PRN (17:14)
[2024-08-06] MEDS ORDERED: BISACODYL 5 MG TABLET.DR (FP) PO PRN (17:14)
[2024-08-06] MEDS: LACTATED RINGERS SOLUTION 1,000 ML IV SCH (17:26)
[2024-08-06] MEDS: PIPERACILLIN/TAZOB 4.5 GM 4.5 GM in DEXTROSE 5%-WATER 100 ML IVPB SCH (17:53)
[2024-08-06] MEDS: MAG HYDROX/AL HYDROX/SIMETH 30 ML UNIT-DOSE CUP PO ONE (18:06)
[2024-08-06] MEDS: oxyCODONE HCL 5 MG TABLET PO PRN (19:25)
[2024-08-06] MEDS: NAPROXEN 250 MG TABLET PO SCH (21:23)
[2024-08-06] MEDS: ACETAMINOPHEN 325 MG TABLET (FP) PO SCH (21:23)
[2024-08-06] MEDS: SENNOSIDES 8.6MG TABLET (FP) PO SCH (21:23)
[2024-08-06] MEDS: GABAPENTIN 300 MG CAPSULE PO SCH (21:23)
[2024-08-06] MEDS: ATORVASTATIN CA 20 MG TABLET (FP) PO SCH (21:23)
[2024-08-06] MEDS: POLYETHYLENE GLYCOL (HEALTHYLAX) 3350 17 GM PACKET PO SCH (21:24)
[2024-08-06] MEDS: INSULIN ASPART SLIDING SCALE (NOVOLOG) 1 VIAL SQ SCH (21:45)
[2024-08-07] MEDS: LISINOPRIL 10 MG TABLET PO SCH (10:19)
[2024-08-07] MEDS: amLODIPine BESYLATE 5 MG TABLET (FP) PO SCH (10:20)
[2024-08-07 10:35] LABS: RETICULOCYTES 0.94 % (0.5-1.5)
[2024-08-07 10:41] LABS: POTASSIUM 4.4 mmol/L (3.5-5.1)
[2024-08-07 10:42] LABS: CALCIUM 9.4 mg/dL (8.5-10.1)
[2024-08-07 10:43] LABS: ALBUMIN 2.4 g/dl (3.4-5.0); BLOOD UREA NITROGEN 15.8 mg/dL (7-18)
[2024-08-07 10:47] LABS: CREATININE 0.4 mg/dL (0.55-1.3)
[2024-08-07 10:48] LABS: BILIRUBIN,TOTAL 0.2 mg/dL (0.2-1); TOT PROT 7.3 g/dl (6.4-8.2)
[2024-08-07 11:50] LABS: HEMATOCRIT 25.1 % (32.4-45.2); HEMOGLOBIN 7.7 GM/dL (10.7-15.3); MCH 23.6 pg (25.7-33.7); MCHC 30.8 g/dl (32.0-36.0); MEAN CELL VOLUME 76.8 fl (80-96); MEAN PLT VOLUME 7.6 fl (7.5-11.1); PLATELET COUNT 553 10^3/uL (134-434); RBC 3.27 M/mm3 (3.60-5.2); RDW 15.2 % (11.6-15.6); WHITE BLOOD COUNT 13.1 K/mm3 (4.0-10.0)
[2024-08-07] MEDS: oxyCODONE HCL 5 MG TABLET PO PRN (21:16)
[2024-08-08 09:33] LABS: HEMATOCRIT 25.9 % (32.4-45.2); HEMOGLOBIN 8.2 GM/dL (10.7-15.3); MCH 24.3 pg (25.7-33.7); MCHC 31.9 g/dl (32.0-36.0); MEAN CELL VOLUME 76.3 fl (80-96); MEAN PLT VOLUME 6.6 fl (7.5-11.1); PLATELET COUNT 513 10^3/uL (134-434); RBC 3.39 M/mm3 (3.60-5.2); RDW 14.9 % (11.6-15.6); WHITE BLOOD COUNT 8.7 K/mm3 (4.0-10.0)
[2024-08-08 09:48] LABS: POTASSIUM 3.9 mmol/L (3.5-5.1)
[2024-08-08 09:51] LABS: CALCIUM 8.7 mg/dL (8.5-10.1)
[2024-08-08 09:52] LABS: ALBUMIN 2.4 g/dl (3.4-5.0); BLOOD UREA NITROGEN 17.6 mg/dL (7-18)
[2024-08-08 09:56] LABS: CREATININE 0.5 mg/dL (0.55-1.3)
[2024-08-08 09:57] LABS: BILIRUBIN,TOTAL 0.3 mg/dL (0.2-1); TOT PROT 6.8 g/dl (6.4-8.2)
[2024-08-08] MEDS: PIPERACILLIN/TAZOB 4.5 GM 4.5 GM/100 ML BAG IVPB SCH (17:19)
[2024-08-08] MEDS: oxyCODONE HCL 5 MG TABLET PO PRN (21:12)
[2024-08-10 11:13] LABS: HEMATOCRIT 27.5 % (32.4-45.2); HEMOGLOBIN 8.6 GM/dL (10.7-15.3); MCH 24.1 pg (25.7-33.7); MCHC 31.4 g/dl (32.0-36.0); MEAN PLT VOLUME 6.9 fl (7.5-11.1); PLATELET COUNT 497 10^3/uL (134-434); RBC 3.57 M/mm3 (3.60-5.2); RDW 15.3 % (11.6-15.6); WHITE BLOOD COUNT 10.9 K/mm3 (4.0-10.0)
[2024-08-10 12:31] LABS: POTASSIUM 4.2 mmol/L (3.5-5.1)
[2024-08-10 12:39] LABS: CALCIUM 9.3 mg/dL (8.5-10.1)
[2024-08-10 12:40] LABS: ALBUMIN 2.8 g/dl (3.4-5.0)
[2024-08-10 12:43] LABS: CREATININE 0.5 mg/dL (0.55-1.3)
[2024-08-10 12:44] LABS: BILIRUBIN,TOTAL 0.3 mg/dL (0.2-1)
[2024-08-10 12:45] LABS: TOT PROT 7.5 g/dl (6.4-8.2)
[2024-08-10] MEDS: LACTATED RINGERS SOLUTION 1,000 ML IV SCH (14:11)
[2024-08-11] MEDS: oxyCODONE HCL 5 MG TABLET PO PRN (09:01)
[2024-08-11] MEDS: PANTOPRAZOLE 40 MG TABLET PO SCH (09:36)
[2024-08-12 18:47] LABS: POTASSIUM 4.3 mmol/L (3.5-5.1)
[2024-08-12 18:49] LABS: CALCIUM 9.6 mg/dL (8.5-10.1)
[2024-08-12 18:50] LABS: BLOOD UREA NITROGEN 16.9 mg/dL (7-18)
[2024-08-12 18:53] LABS: CREATININE 0.6 mg/dL (0.55-1.3)
[2024-08-12 18:54] LABS: BILIRUBIN,TOTAL 0.2 mg/dL (0.2-1)
[2024-08-12 19:03] LABS: BASO % 0.1 % (0-2.0); HEMATOCRIT 29.5 % (32.4-45.2); HEMOGLOBIN 9.2 GM/dL (10.7-15.3); LYMPH % 20.9 % (8-40); MCHC 31.2 g/dl (32.0-36.0); MEAN CELL VOLUME 77.1 fl (80-96); MEAN PLT VOLUME 7.3 fl (7.5-11.1); MONO % 3.2 % (3.8-10.2); NEUT % 71.8 % (42.8-82.8); PLATELET COUNT 494 10^3/uL (134-434); RBC 3.83 M/mm3 (3.60-5.2); RDW 15.7 % (11.6-15.6); WHITE BLOOD COUNT 9.6 K/mm3 (4.0-10.0)
[2024-08-14 11:03] LABS: HEMATOCRIT 31.9 % (32.4-45.2); HEMOGLOBIN 9.9 GM/dL (10.7-15.3); MCHC 31.1 g/dl (32.0-36.0); MEAN PLT VOLUME 7.4 fl (7.5-11.1); PLATELET COUNT 455 10^3/uL (134-434); RBC 4.14 M/mm3 (3.60-5.2); RDW 15.4 % (11.6-15.6); WHITE BLOOD COUNT 9.8 K/mm3 (4.0-10.0)
[2024-08-14 11:20] LABS: POTASSIUM 4.2 mmol/L (3.5-5.1)
[2024-08-14 11:26] LABS: BLOOD UREA NITROGEN 24.8 mg/dL (7-18)
[2024-08-14 11:29] LABS: CREATININE 0.5 mg/dL (0.55-1.3)
[2024-08-14 11:30] LABS: PHOSPHOROUS 3.2 mg/dL (2.5-4.9)
[2024-08-14] MEDS ORDERED: metroNIDAZOLE 250 MG TABLET PO SCH (14:00)
[2024-08-14] MEDS: metroNIDAZOLE 250 MG TABLET PO SCH (14:41)
[2024-08-14] MEDS: levoFLOXacin 750 MG TABLET PO SCH (17:30)
[2024-08-15] MEDS: levoFLOXacin 750 MG TABLET PO SCH (06:34)
[2024-08-15 09:08] VITALS: BP 123/75; PULSE 92; RESP 18; TEMP 99.3
[2024-08-15] MEDS: BACITRACIN ZINC 15 GM TUBE TOPICAL OINTMENT TP ONE (15:11)
== END 2024-08-15 15:40 | disposition home or self-care (01) | DRG 711 ==
LOC: JER 12:05 → JERBED 18:13 → J6S 20:03 → UNDODISIN 08-13 13:40
PROVIDERS: ADMIT Internal Medicine; ATTEND Internal Medicine
PROC: 0J980ZZ Drainage of Abdomen Subcutaneous Tissue and Fascia, Open Approach (ICD-10-PCS; principal; 2024-08-06 15:53)
DX: T81.43XA Infection following a procedure, organ and space surgical site, initial encounter (principal); K65.1 Peritoneal abscess; I10 Essential (primary) hypertension; E11.40 Type 2 diabetes mellitus with diabetic neuropathy, unspecified; E78.5 Hyperlipidemia, unspecified; E11.621 Type 2 diabetes mellitus with foot ulcer; L97.518 Non-pressure chronic ulcer of other part of right foot with other specified severity; D64.9 Anemia, unspecified; E83.39 Other disorders of phosphorus metabolism; L02.211 Cutaneous abscess of abdominal wall; L03.115 Cellulitis of right lower limb; K59.00 Constipation, unspecified; E66.9 Obesity, unspecified; Z68.33 Body mass index [BMI] 33.0-33.9, adult; Y83.8 Other surgical procedures as the cause of abnormal reaction of the patient, or of later complication, without mention of misadventure at the time of the procedure
CPT/HCPCS: 36415; 71045-TC-FY; 73630-TC-RT-FY; 73718-TC-RT; 74177-TC; 80048; 80053; 81003; 82272; 82607; 82728; 82746; 82962; 83036; 83540; 83550; 83735; 84100; 84443; 84703; 85025; 85027; 85045; 85610; 85651; 86140; 86850; 86900; 86901; 87070; 87086; 87186; 87205; 90656; 94760; 99285-25; G0008; J0131; Q9967